=== PATIENT | male | born 1995 | race Caucasian/White ===

== ENCOUNTER 2016-06-21 06:10 | Emergency (ER) | payer BC ==
[~2016-06-21] VITALS: Ht 170.2 cm; Wt 52.2 kg
[~2016-06-21 06:10] MED LIST: PERCOCET 5-3251 EACH PO
--- NOTE | 2016-06-21 06:34 | ED GI/GU/ABDOMINAL COMPLAINT ---
See Addendum History of Present Illness General Chief Complaint: Abdominal Pain/Flank Pain Stated Complaint: LOW ABD PAIN PER PT Source: patient Exam Limitations: no limitations Vital Signs & Intake/Output Vital Signs & Intake/Output Vital Signs Date Time Temp Pulse Resp B/P Pulse O2 O2 Flow FiO2 Ox Delivery Rate 06/21 0624 96.8 100 22 129/84 97 Room Air Allergies Coded Allergies: NO KNOWN ALLERGIES (12/25/15) Reconcile Medications Oxycodone HCl/Acetaminophen (Percocet 5-325 MG Tablet) 1 EACH TABLET 1-2 TAB PO Q6P PRN PAIN Triage Note: PT TO ED COMPLAINING OF ABD PAIN AND SWEATS. PT N/V IN TRIAGE. DENIES DIARRHEA. Triage Nurses Notes Reviewed? yes Onset: Gradual Duration: hour(s): Timing: recent history Quality/Severity: cramping Location: epigastric, generalized abdomen, right lower quadrant Radiation: no radiation Activities at Onset: none Prior Abdominal Problems: none Modifying Factors: Worsens With: palpation, vomiting. Associated Symptoms: abdominal pain, nausea/vomiting HPI: 20-year-old gentleman in prior good health history of seizure disorder presents with several hours of diffuse abdominal pain, nausea, vomiting. He states that he awoke to the symptoms, and does not identify any causal agents. He has no fever chills dysuria diarrhea. He notes the pain is mostly in his lower abdomen and in his mid epigastrium. He has no chest pain shortness of breath. He is otherwise well. Mom wonders if it could be the flu. Past History Travel History Traveled to [place] past 21 day No Medical History Any Pertinent Medical History? see below for history Neurological: seizure EENT: NONE Cardiovascular: NONE Respiratory: NONE Gastrointestinal: NONE Hepatic: NONE Renal: NONE Musculoskeletal: NONE Psychiatric: NONE Endocrine: NONE Surgical History Surgical History: non-contributory Psychosocial History Who do you live with Family What is your primary language Austrian Tobacco Use: Current Daily Use Daily Tobacco Use Amount/Type: => 5 Cigarettes daily ETOH Use: denies use Family History Hx Contributory? No Review of Systems Review of Systems Constitutional: Reports: no symptoms. EENTM: Reports: no symptoms. Respiratory: Reports: no symptoms. Cardiovascular: Reports: no symptoms. GI: Reports: no symptoms. Genitourinary: Reports: no symptoms. Musculoskeletal: Reports: no symptoms. Skin: Reports: no symptoms. Neurological/Psychological: Reports: no symptoms. Hematologic/Endocrine: Reports: no symptoms. Immunologic/Allergic: Reports: no symptoms. All Other Systems: Reviewed and Negative Physical Exam Physical Exam General Appearance: well developed/nourished, mild distress, moderate distress Head: atraumatic, normal appearance Eyes: Bilateral: normal appearance. Ears, Nose, Throat, Mouth: hearing grossly normal Neck: normal inspection, supple, full range of motion Respiratory: normal breath sounds, chest non-tender, no respiratory distress, quiet respiration, lungs clear Cardiovascular: regular rate/rhythm Gastrointestinal: normal bowel sounds, soft, MID EPIGASTRIC TENDERNESS, RLQ TENDERNESS. NO REBOUND. NO GUARDING. Back: normal inspection Extremities: normal range of motion Neurologic/Psych: no motor/sensory deficits, awake, alert, oriented x 3 Skin: intact, normal color, warm/dry Core Measures ACS in differential dx? No Severe Sepsis Present: No Septic Shock Present: No Progress Differential Diagnosis: orchitis, pancreatitis, prostatitis, peptic ulcer, pyelonephritis, UTI/pyelo Plan of Care: Orders Procedure Date/time Status CT ABD & PELVIS W/O IV CONTRAS 06/21 640 Active RAPID VIRAL INFLUENZA A 06/21 633 Active URINALYSIS 06/21 633 Active LIPASE 06/21 633 Active HEPATIC FUNCTION PANEL 06/21 633 Active CBC WITHOUT DIFFERENTIAL 06/21 633 Active BASIC METABOLIC PANEL 06/21 633 Active AMYLASE 06/21 633 Active Current Medications Sig/Michael Start time Last Medication Dose Stop Time Status Admin Famotidine 20 MG ONCE ONE 06/21 0545 UNVr (Pepcid) 06/21 645 Ketorolac 30 MG ONCE ONE 06/21 0545 UNVr Tromethamine 06/21 0546 (Toradol) Ondansetron HCl 4 MG ONCE ONE 06/21 0545 UNVr (Zofran) 06/21 645 Sodium Chloride 1,000 ML BOLUS ONE 06/21 644 UNVr (Normal Saline 0.9%) 06/21 743 Diagnostic Imaging: Viewed by Me: CT Scan. Discussed w/RAD: CT Scan. Initial ED EKG: none Hand-Off Endorsed To: RUSSELL CRAWFORD DO Endorsed Time: 0700 Pending: CT, labs Departure Departure Disposition: STILL A PATIENT Condition: Stable Clinical Impression Primary Impression: Abdominal pain Referrals: BETZY FOLEY MD (PCP/Family) Departure Forms: Customer Survey General Discharge Information Comments pt to be given supportive medications, will check ct scan. pt signed out to dr. crawford at 7am.
[2016-06-21 06:53] LABS: ABSOLUTE BASOPHIL COUNT 0 /CUMM (0.0-0.2); ABSOLUTE EOSINOPHIL COUNT 0.2 /CUMM (0.0-0.7); ABSOLUTE GRANULOCYTE CT 5.9 /CUMM (1.4-6.5); ABSOLUTE LYMPH COUNT 3.7 /CUMM (1.2-3.4); ABSOLUTE MONOCYTE COUNT 0.7 /CUMM (0.10-0.60); BASOPHIL % 0.4 % (0.0-2.0); EOSINOPHIL % 2.1 % (0-5); GRANULOCYTE % 55.9 % (42.2-75.2); HEMATOCRIT 45.7 % (42-52); MEAN CORPUSCULAR HGB 30.1 PG (27.0-31.0); MEAN CORPUSCULAR HGB CONC 33.9 G/DL (33.0-37.0); MEAN CORPUSCULAR VOLUME 88.8 FL (80.0-94.0); MEAN PLATELET VOLUME 7.5 FL (7.4-10.4); PLATELET COUNT 273 /CUMM (130-400); RED BLOOD CELL CT 5.14 /CUMM (4.70-6.10); WHITE BLOOD CELL COUNT 10.6 /CUMM (4.8-10.8)
[2016-06-21 08:17] VITALS: BP 103/80
--- NOTE | 2016-06-21 08:51 | CT SCAN REPORT ---
EXAMINATION: CT ABDOMEN AND PELVIS WITHOUT CONTRAST CLINICAL INFORMATION: Right lower quadrant pain COMPARISON: None. TECHNIQUE: Multidetector volumetric imaging was performed from the superior aspect of the liver through the pubic symphysis. Sagittal and coronal reformatted images were obtained on the technologist's workstation. DLP: 250.18 mGy-cm. FINDINGS: LUNG BASES: The visualized lung bases are unremarkable. LIVER, GALLBLADDER, AND BILIARY TREE: The liver is normal in size, shape, and attenuation. No focal hepatic lesion or biliary ductal dilatation is present. The gallbladder is unremarkable. PANCREAS: Unremarkable. SPLEEN: Unremarkable. ADRENAL GLANDS: Unremarkable. KIDNEYS AND URETERS: Although the course of the right ureter is difficult to completely follow distally, there is a 2 mm calcification in the right pelvis which is suspicious for location at the right ureterovesicular junction (image 71/86). No significant hydronephrosis. A few additional scattered punctate calculi are noted in the right kidney. No left-sided hydronephrosis or calculi are seen. BLADDER: Unremarkable. GASTROINTESTINAL TRACT: The small and large bowel are unremarkable. The appendix is not well delineated, though the visualized portion appears nondilated. ABDOMINAL WALL: No significant hernia is appreciated. LYMPH NODES: No appreciable lymphadenopathy, though assessment is limited in the absence of intravenous contrast. VASCULAR: Unremarkable. PELVIC VISCERA: Unremarkable. OSSEOUS STRUCTURES: Unremarkable. IMPRESSION: 1. Calculus measuring 2 mm, likely at the right ureterovesicular junction. No significant hydronephrosis. 2. Few additional scattered punctate right renal calculi.
[2016-06-21] MEDS ORDERED: ZOFRAN4 M2 PO (09:11)
[2016-06-21] MEDS ORDERED: FLOMAX0.4 M1 PO (09:11)
[2016-06-21] MEDS ORDERED: MOBIC15 M1 PO (09:11)
== END 2016-06-21 09:44 ==
LOC: ERH 06:10
PROVIDERS: Pediatrics
DX: N20.1 Calculus of ureter (principal); R10.13 Epigastric pain; R10.31 Right lower quadrant pain
CPT/HCPCS: 74176; 81001; 87086; 87804; 87804-59; 96374; 96375; J1885; J2405

== ENCOUNTER 2016-10-25 09:15 | Emergency (ER) | payer BC ==
[~2016-10-25] VITALS: Ht 167.6 cm; Wt 52.2 kg
[~2016-10-25 09:15] MED LIST changes: +FLOMAX0.4 M1 PO; +MOBIC15 M1 PO; +ZOFRAN4 M2 PO
--- NOTE | 2016-10-25 09:34 | ED GI/GU/ABDOMINAL COMPLAINT ---
History of Present Illness General Chief Complaint: Abdominal Pain/Flank Pain Stated Complaint: R SIDE FLANK PAIN Source: patient, family, old records Exam Limitations: no limitations Vital Signs & Intake/Output Vital Signs & Intake/Output Vital Signs Date Time Temp Pulse Resp B/P B/P Pulse O2 O2 Flow FiO2 Mean Ox Delivery Rate 10/25 1505 96.6 65 20 118/79 98 Room Air 10/25 1320 96.7 54 16 118/72 99 Room Air 10/25 1120 95.1 60 20 126/82 98 Room Air 10/25 0917 96.0 52 18 125/81 96 Room Air Allergies Coded Allergies: NO KNOWN ALLERGIES (12/25/15) Reconcile Medications Tamsulosin HCl (Flomax) 0.4 MG CAP.ER.24H 1 CAP PO DAILY KIDNEY STONE Triage Note: 21 Y/O MALE C/O RLQ PAIN X 2 WEEKS; STATES PAIN IS INTERMITTENT IN NATURE. HX KIDNEY STONES AND THIS FEELS SIMILIAR. DENIES OTHER COMPLAINTS. HAS NOT TAKEN ANY OTC MEDS FOR PAIN. Triage Nurses Notes Reviewed? yes Onset: Gradual Duration: day(s):, continues in ED, intermittent (initially but now constant) Timing: recent history (may due to renal colic) Quality/Severity: sharpness, severe Location: right lower quadrant, suprapubic Radiation: no radiation HPI: Patient presents for evaluation of a severe right lower quadrant pain that began about 2 weeks ago. It was initially intermittent but became constant today. Patient states that he awoke with pain at about 6:30 this morning. He vomited once today. There has been no associated fever, cold symptoms, diarrhea or dysuria. He has had prior episodes in typically did not seek care although in May of this year he was diagnosed with renal colic. He has tried no medications for this current episode. He denies any alcohol or drug use but is a cigarette smoker. Past History Travel History Traveled to [place] past 21 day No Medical History Any Pertinent Medical History? 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 No Review of Systems Review of Systems Constitutional: Reports: no symptoms. EENTM: Reports: no symptoms. Respiratory: Reports: no symptoms. Cardiovascular: Reports: no symptoms. GI: Reports: see HPI. Genitourinary: Reports: no symptoms. Musculoskeletal: Reports: no symptoms. Skin: Reports: no symptoms. Neurological/Psychological: Reports: no symptoms. Hematologic/Endocrine: Reports: no symptoms. Immunologic/Allergic: Reports: no symptoms. All Other Systems: Reviewed and Negative Physical Exam Physical Exam Gastrointestinal: see below Comments: Gen.: Well-nourished, well-developed, no acute respiratory distress. Head: Normocephalic, atraumatic. Eyes: Normal inspection bilaterally Ears: Normal inspection bilaterally Nose: Normal inspection Throat/mouth : Moist mucosa Neck: Supple, full range of motion, no goiter Heart: Regular rate and rhythm, no murmurs rubs or gallops Lungs: Clear to auscultation bilaterally with normal air entry Chest: Nontender Back: Normal range of motion Abdomen: Soft, tenderness over the suprapubic and right lower quadrant regions with brief voluntary guarding but no rebound., nondistended, normal bowel sounds Extremities: Normal range of motion grossly, no cyanosis clubbing or edema Neurologic: Cranial nerves grossly intact, speech is clear Skin: warm and dry Psychiatric: Calm, cooperative, no apparent delusions or hallucinations, mildly anxious Core Measures ACS in differential dx? No Severe Sepsis Present: No Septic Shock Present: No Progress Differential Diagnosis: appendicitis, ureterolithiasis, UTI/pyelo Plan of Care: Orders Procedure Date/time Status URINALYSIS 10/25 932 Complete LIPASE 10/25 932 Complete COMPREHENSIVE METABOLIC PANEL 10/25 932 Complete CBC WITHOUT DIFFERENTIAL 10/25 932 Complete Laboratory Tests 10/25/16 0943: Anion Gap 12, Estimated GFR > 60, BUN/Creatinine Ratio 13.0, Glucose 151 H, Calcium 9.5, Total Bilirubin 0.6, AST 18, ALT 35, Alkaline Phosphatase 79, Total Protein 7.0, Albumin 4.5, Globulin 2.5, Albumin/Globulin Ratio 1.8, Lipase 112, CBC w Diff NO MAN DIFF REQ, RBC 4.90, MCV 87.4, MCH 30.0, RDW 12.5, MPV 7.6, Gran % 78.2 H, Lymphocytes % 15.1 L, Monocytes % 5.8, Eosinophils % 0.5, Basophils % 0.4, Absolute Granulocytes 7.2 H, Absolute Lymphocytes 1.4, Absolute Monocytes 0.5, Absolute Eosinophils 0, Absolute Basophils 0, PUBS MCHC 34.4 10/25/16 0933: Urinalysis MOD H, Urine Color YEL, Urine Clarity CLDY H, Urine pH 7.0, Ur Specific [place] 1.020, Urine Protein TRACE H, Urine Ketones TRACE H, Urine Nitrite NEG, Urine Bilirubin NEG, Urine Urobilinogen 0.2, Ur Leukocyte Esterase NEG, Ur Microscopic SEDIMENT EXAMINED, Urine RBC 25-50 H, Urine WBC 1-3 H, Urine Crystals RARE CA OX, Urine Hemoglobin LARGE H, Urine Glucose NEG Diagnostic Imaging: Discussed w/RAD: Ultrasound. Radiology Impression: PATIENT: NESTOR ESPINAL PRESENT AGE: 21 PATIENT ACCOUNT NO: [id number] : 94 LOCATION: [facility] ORDERING PHYSICIAN: MEET LOPEZ MD SERVICE DATE: 10/25/16 EXAM TYPE: US - US-LIMITED ABDOMEN; US-RENAL/KIDNEY EXAMINATION: US RENAL, BILATERAL US RIGHT LOWER QUADRANT, LIMITED CLINICAL INFORMATION: Right lower quadrant and suprapubic pain and tenderness. History of right renal calculi. Presumptive diagnosis of right renal colic versus appendicitis. COMPARISON: CT scan of the abdomen and pelvis dated 06/21/2016. TECHNIQUE: A bilateral renal ultrasound was performed. In addition to right lower quadrant ultrasound was performed with graded compression. Real-time assessment by the reading radiologist was performed. FINDINGS: RENAL ULTRASOUND: RIGHT KIDNEY: Normal. Mild hydronephrosis persists, similar to the prior exam. There is a 0.2 cm echogenic focus with associated ringdown artifact, consistent with a tiny nonobstructing mid renal calcification. This is unchanged from prior CT scan. No focal parenchymal lesions. The kidney measures 10.7 cm in maximum dimension. LEFT KIDNEY: Normal. No hydronephrosis. No renal calculi or suspicious focal parenchymal lesions. Benign-appearing cyst is seen in the mid kidney, measuring 0.9 x 0.9 x 1.0 The kidney measures 9.9 cm in maximum dimension. BLADDER: Decompressed and suboptimally visualized. No definite bladder calculi. Bilateral urine jets are not visualized. RIGHT LOWER QUADRANT ULTRASOUND: The ascending colon and small bowel loops in the right lower quadrant appearing unremarkable and are normally compressible. No focal fluid collection or adenopathy is seen in the right lower quadrant. The appendix is not discretely identified. No secondary signs of appendicitis are seen. Abdomen felt soft and no significant guarding was noted during the graded compression. IMPRESSION: 1. Nonobstructing mid right renal 0.2 cm calcification. 2. Persistent mild right-sided hydronephrosis, similar to the prior CT scan. 3. Tiny mid left renal cyst. 4. Bladder incompletely assessed. 5. The appendix is not discretely identified. However, no secondary signs of appendicitis are seen. Close clinical correlation is requested. If clinical suspicion remains high, recommend further assessment with CT scan of the abdomen and pelvis with oral and intravenous contrast. DICTATED BY: CORIE CONLEY MD DATE/TIME DICTATED:10/25/161112 CALL WORKER PERSON:CHUCKY DATE/TIME TRANSCRIBED:10/25/161112 CONFIDENTIAL, DO NOT COPY WITHOUT APPROPRIATE AUTHORIZATION. <Electronically signed in Other Vendor System> SIGNED BY: CORIE CONLEY MD 10/25/16 1123 Initial ED EKG: none Comments: 10/25/2016 3:19:30 PM I updated Nestor after his ultrasound results were available and i just updated him again on his CAT scan report. He states he is comfortable. He has medications "leftover" from his prior kidney stone treated in this emergency department in May. Departure Departure Disposition: HOME OR SELF CARE Condition: Stable Clinical Impression Primary Impression: Renal colic on right side Referrals: PATIENT HAS NO PRIMARY CARE DR (PCP/Family) Additional Instructions: Toradol as prescribed for pain. You may take the ondansetron (Zofran) for nausea or vomiting as needed as prescribed during her last visit. You do not need to take the other medications previously prescribed. Follow-up with Dr. Silver or your own urologist as soon as possible for reevaluation and further testing and treatment as indicated. Return if any concerns or sudden worsening. Please note that there might be incidental findings in your evaluation that are unrelated to the current emergency department visit. Please notify your primary care doctor about this emergency department visit in order to obtain and review all of the testing performed so that these incidental findings can be monitored as needed. If you had an x-ray performed, please understand that some fractures may not be seen on the initial set of x-rays. If your symptoms persist you might need a repeat set of x-rays to check for such a fracture. If you had a laceration evaluated, please understand that foreign bodies such as glass or wood may not be visible to the naked eye or on plain x-rays. If the wound becomes red, swollen, increasingly more painful or if there is any drainage from the wound, please have it reevaluated by a physician for the possibility of a retained foreign body. Thank you for choosing the [facility] Emergency Department for your care. It was a pleasure to serve you today. Meet Lopez M.D. [facility] Departure Forms: Customer Survey General Discharge Information Prescriptions: Current Visit Scripts Ketorolac Tromethamine 1 TAB PO Q6P PRN kidney stone pain #16 TAB Nestor was treated with IV Toradol in the emergency department Critical Care Note Critical Care Note Critical Care Time: 30-74 min
[2016-10-25 09:54] LABS: ABSOLUTE BASOPHIL COUNT 0 /CUMM (0.0-0.2); ABSOLUTE EOSINOPHIL COUNT 0 /CUMM (0.0-0.7); ABSOLUTE GRANULOCYTE CT 7.2 /CUMM (1.4-6.5); ABSOLUTE LYMPH COUNT 1.4 /CUMM (1.2-3.4); ABSOLUTE MONOCYTE COUNT 0.5 /CUMM (0.10-0.60); BASOPHIL % 0.4 % (0.0-2.0); EOSINOPHIL % 0.5 % (0-5); GRANULOCYTE % 78.2 % (42.2-75.2); HEMATOCRIT 42.9 % (42-52); MEAN CORPUSCULAR HGB CONC 34.4 G/DL (33.0-37.0); MEAN CORPUSCULAR VOLUME 87.4 FL (80.0-94.0); MEAN PLATELET VOLUME 7.6 FL (7.4-10.4); PLATELET COUNT 244 /CUMM (130-400); RBC DISTRIBUTION WIDTH 12.5 % (11.5-14.5); WHITE BLOOD CELL COUNT 9.2 /CUMM (4.8-10.8)
--- NOTE | 2016-10-25 11:23 | ULTRASOUND REPORT ---
EXAMINATION: US RENAL, BILATERAL US RIGHT LOWER QUADRANT, LIMITED CLINICAL INFORMATION: Right lower quadrant and suprapubic pain and tenderness. History of right renal calculi. Presumptive diagnosis of right renal colic versus appendicitis. COMPARISON: CT scan of the abdomen and pelvis dated 06/21/2016. TECHNIQUE: A bilateral renal ultrasound was performed. In addition to right lower quadrant ultrasound was performed with graded compression. Real-time assessment by the reading radiologist was performed. FINDINGS: RENAL ULTRASOUND: RIGHT KIDNEY: Normal. Mild hydronephrosis persists, similar to the prior exam. There is a 0.2 cm echogenic focus with associated ringdown artifact, consistent with a tiny nonobstructing mid renal calcification. This is unchanged from prior CT scan. No focal parenchymal lesions. The kidney measures 10.7 cm in maximum dimension. LEFT KIDNEY: Normal. No hydronephrosis. No renal calculi or suspicious focal parenchymal lesions. Benign-appearing cyst is seen in the mid kidney, measuring 0.9 x 0.9 x 1.0 The kidney measures 9.9 cm in maximum dimension. BLADDER: Decompressed and suboptimally visualized. No definite bladder calculi. Bilateral urine jets are not visualized. RIGHT LOWER QUADRANT ULTRASOUND: The ascending colon and small bowel loops in the right lower quadrant appearing unremarkable and are normally compressible. No focal fluid collection or adenopathy is seen in the right lower quadrant. The appendix is not discretely identified. No secondary signs of appendicitis are seen. Abdomen felt soft and no significant guarding was noted during the graded compression. IMPRESSION: 1. Nonobstructing mid right renal 0.2 cm calcification. 2. Persistent mild right-sided hydronephrosis, similar to the prior CT scan. 3. Tiny mid left renal cyst. 4. Bladder incompletely assessed. 5. The appendix is not discretely identified. However, no secondary signs of appendicitis are seen. Close clinical correlation is requested. If clinical suspicion remains high, recommend further assessment with CT scan of the abdomen and pelvis with oral and intravenous contrast.
--- NOTE | 2016-10-25 14:37 | CT SCAN REPORT ---
EXAMINATION: CT ABDOMEN AND PELVIS WITH CONTRAST CLINICAL INFORMATION: Right-sided pain. Evaluate for renal colic or appendicitis. COMPARISON: CT abdomen and pelvis dated 06/21/2016 TECHNIQUE: Multidetector volumetric imaging was performed of the abdomen and pelvis before and after the IV administration of 94 mL of Optiray 320 intravenous contrast. Sagittal and coronal reformatted images were obtained on the technologist's workstation. DLP: 266.50 mGy-cm FINDINGS: LUNG BASES: The visualized lung bases are unremarkable. LIVER, GALLBLADDER, AND BILIARY TREE: The liver is normal in size, shape, and attenuation. No focal hepatic lesion or biliary ductal dilatation is present. The gallbladder is unremarkable with no evidence of radiopaque gallstones, gallbladder wall thickening, or obvious pericholecystic inflammatory changes. PANCREAS: Unremarkable. SPLEEN: Unremarkable. ADRENAL GLANDS: Unremarkable. KIDNEYS AND URETERS: There is fullness of the right-sided collecting system and mild dilatation of the right ureter. Tiny calcific density measuring approximately 0 point to by 0.3 cm noted at the level of right UVJ (series 2 image 76 and coronal image 38). Findings are suspicious for right UVJ calculus. Study had also demonstrated suggestion of right UVJ calculus. The current calculus is noted slightly more proximal to the to the one seen on the prior exam.. Subtle delay in the right renal function compared to the left kidney. Low-attenuation cortical lesion measuring approximately 1 cm noted in the mid to lower left kidney. It is too small to be accurately characterize. Previously seen punctate calculus mid to lower right kidney is no longer appreciated. BLADDER: Unremarkable. GASTROINTESTINAL TRACT: Contrast is seen within the stomach, small and large bowel loops. Appendix is difficult to visualize likely due to its small size and decompressed appearance. No definite evidence of acute appendicitis. ABDOMINAL WALL: No significant hernia is appreciated. LYMPH NODES: No evidence of lymphadenopathy. VASCULAR: Unremarkable. PELVIC VISCERA: Unremarkable. OSSEOUS STRUCTURES: Unremarkable. IMPRESSION: 1. Tiny 0.3 cm partially obstructing calculus right UVJ. Mild fullness of the right collecting system. Prior study had also demonstrated a 2 mm calculus at the right UVJ. The current calculus is noted slightly more proximal to the one seen previously. 2. Previously seen punctate calculus in the mid to lower right kidney is no longer visualized. 3. Slight delay in the right renal function. 4. No definite evidence of acute appendicitis.
[2016-10-25 15:05] VITALS: BP 118/79
[2016-10-25] MEDS ORDERED: KETOROLAC TROME10 M1 PO (15:26)
== END 2016-10-25 15:47 ==
LOC: ERH 09:15
PROVIDERS: Emergency Medicine
DX: N23 Unspecified renal colic (principal)
CPT/HCPCS: 74177; 76775; 81001; 96374; 96375; J0131; J1885; J2405

== ENCOUNTER 2016-10-27 16:09 | Emergency (ER) | payer BC ==
[~2016-10-27] VITALS: Ht 167.6 cm; Wt 52.2 kg
[~2016-10-27 16:09] MED LIST changes: +KETOROLAC TROME10 M1 PO
--- NOTE | 2016-10-27 16:55 | ED GI/GU/ABDOMINAL COMPLAINT ---
History of Present Illness General Chief Complaint: Abdominal Pain/Flank Pain Stated Complaint: RIGHT FLANK PAIN, LAST SEEN FOR KIDNEY STONE Source: patient, family, old records Exam Limitations: no limitations Vital Signs & Intake/Output Vital Signs & Intake/Output Vital Signs Date Time Temp Pulse Resp B/P B/P Pulse O2 O2 Flow FiO2 Mean Ox Delivery Rate 10/27 1737 68 18 116/74 97 Room Air 10/27 1620 98.9 52 15 142/88 99 Room Air Room Air Allergies Coded Allergies: No Known Allergies (10/27/16) Reconcile Medications Ketorolac Tromethamine 10 MG TABLET 1 TAB PO Q6P PRN kidney stone pain Nestor was treated with IV Toradol in the emergency department Triage Note: PT TO ED FOR R FLANK PAIN THAT STARTED THIS MORNING. SEEN SATURDAY IN THIS ED AND DIAGNOSED WITH KIDNEY STONE. TOOK HOME PAIN MEDS WITHOUT RELIEF. PT DENIES N/V AT THIS TIME. DENIES FEVERS. Triage Nurses Notes Reviewed? yes Onset: several days Duration: day(s):, continues in ED, waxing and waning Timing: recent history Quality/Severity: sharpness, severe Location: right flank Radiation: back Activities at Onset: none Prior Abdominal Problems: similar symptoms Past Sexual History: Unobtainable at this time No Modifying Factors: none Associated Symptoms: abdominal pain, loss of appetite, nausea/vomiting HPI: Several days prior to admission patient planes of right flank pain sharp waxing and waning moderate to severe radiating to his back associated with nausea. He was seen in the emergency department found to have kidney stones and did not fill his prescriptions for analgesic. He denies fever chills vomiting diarrhea chest pain cough shortness of breath headache dysuria rash bleeding Past History Travel History Traveled to [place] past 21 day No Medical History Any Pertinent Medical History? 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 No Review of Systems Review of Systems Constitutional: Reports: no symptoms. EENTM: Reports: no symptoms. Respiratory: Reports: no symptoms. Cardiovascular: Reports: no symptoms. GI: Reports: see HPI, abdominal pain, nausea. Genitourinary: Reports: no symptoms. Musculoskeletal: Reports: no symptoms. Skin: Reports: no symptoms. Neurological/Psychological: Reports: no symptoms. Hematologic/Endocrine: Reports: no symptoms. Immunologic/Allergic: Reports: no symptoms. All Other Systems: Reviewed and Negative Physical Exam Physical Exam General Appearance: well developed/nourished, alert, awake, anxious, moderate distress, thin Head: atraumatic, normal appearance Eyes: Bilateral: normal appearance, PERRL, EOMI, normal inspection. Ears, Nose, Throat, Mouth: hearing grossly normal, moist mucous membrane Neck: normal inspection, supple, full range of motion, normal alignment Respiratory: normal breath sounds, chest non-tender, no respiratory distress, quiet respiration, lungs clear Cardiovascular: regular rate/rhythm, normal peripheral pulses, norml femoral pulses equa Peripheral Pulses: 4+ carotid (R), 4+ carotid (L) Gastrointestinal: normal bowel sounds, soft Male Genitals: normal genitalia Back: normal inspection, normal range of motion Extremities: normal range of motion, no ligament instability Neurologic/Psych: no motor/sensory deficits, awake, alert, oriented x 3, normal gait, normal mood/affect, 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 No Severe Sepsis Present: No Septic Shock Present: No Progress Differential Diagnosis: gastritis, pancreatitis, ureterolithiasis, UTI/pyelo Plan of Care: Orders Procedure Date/time Status URINALYSIS 10/27 1639 Complete COMPREHENSIVE METABOLIC PANEL 10/27 1639 Complete CBC WITHOUT DIFFERENTIAL 10/27 1639 Complete Laboratory Tests 10/27/16 1815: Urinalysis LIGHT H, Urine Color YEL, Urine Clarity HAZY H, Urine pH 7.0, Ur Specific [place] 1.020, Urine Protein TRACE H, Urine Ketones >=80, Urine Nitrite NEG, Urine Bilirubin NEG, Urine Urobilinogen 1.0, Ur Leukocyte Esterase NEG, Ur Microscopic SEDIMENT EXAMINED, Urine RBC 15-25 H, Urine WBC 1-3 H, Ur Epithelial Cells RARE, Urine Bacteria RARE H, Urine Mucus MOD H, Urine Hemoglobin MOD H, Urine Glucose NEG 10/27/16 1700: Anion Gap 12, Estimated GFR > 60, BUN/Creatinine Ratio 15.6, Glucose 93, Calcium 9.9, Total Bilirubin 1.0, AST 20, ALT 41, Alkaline Phosphatase 73, Total Protein 7.6, Albumin 5.0, Globulin 2.6, Albumin/Globulin Ratio 1.9, CBC w Diff NO MAN DIFF REQ, RBC 5.26, MCV 89.3, MCH 29.7, RDW 13.0, MPV 7.8, Gran % 84.6 H, Lymphocytes % 9.8 L, Monocytes % 5.1, Eosinophils % 0.2, Basophils % 0.3, Absolute Granulocytes 9.1 H, Absolute Lymphocytes 1.1 L, Absolute Monocytes 0.5, Absolute Eosinophils 0, Absolute Basophils 0, PUBS MCHC 33.3 Initial ED EKG: none Departure Departure Time of Disposition: 1843 Disposition: HOME OR SELF CARE Condition: Stable Clinical Impression Primary Impression: Renal colic on right side Referrals: PARUL MENDIETA,CRISTOB[place] Call for urology follow up Departure Forms: Customer Survey General Discharge Information Prescriptions: Current Visit Scripts Tamsulosin HCl (Flomax) 1 CAP PO DAILY #15 CAP Ibuprofen 1 TAB PO Q6PRN PRN pain #50 TAB with food Oxycodone HCl/Acetaminophen (Percocet 5-325 MG Tablet) 1-2 TAB PO Q6P PRN severe pain #15 TAB
[2016-10-27 17:07] LABS: ABSOLUTE BASOPHIL COUNT 0 /CUMM (0.0-0.2); ABSOLUTE EOSINOPHIL COUNT 0 /CUMM (0.0-0.7); ABSOLUTE GRANULOCYTE CT 9.1 /CUMM (1.4-6.5); ABSOLUTE LYMPH COUNT 1.1 /CUMM (1.2-3.4); ABSOLUTE MONOCYTE COUNT 0.5 /CUMM (0.10-0.60); BASOPHIL % 0.3 % (0.0-2.0); EOSINOPHIL % 0.2 % (0-5); GRANULOCYTE % 84.6 % (42.2-75.2); HEMATOCRIT 46.9 % (42-52); MEAN CORPUSCULAR HGB 29.7 PG (27.0-31.0); MEAN CORPUSCULAR HGB CONC 33.3 G/DL (33.0-37.0); MEAN CORPUSCULAR VOLUME 89.3 FL (80.0-94.0); MEAN PLATELET VOLUME 7.8 FL (7.4-10.4); PLATELET COUNT 275 /CUMM (130-400); RED BLOOD CELL CT 5.26 /CUMM (4.70-6.10); WHITE BLOOD CELL COUNT 10.8 /CUMM (4.8-10.8)
[2016-10-27 17:37] VITALS: BP 116/74
[2016-10-27] MEDS ORDERED: FLOMAX0.4 M1 PO (18:43)
[2016-10-27] MEDS ORDERED: IBUPROFEN600 M1 PO (18:43)
[2016-10-27] MEDS ORDERED: PERCOCET 5-3251 EACH PO (18:43)
== END 2016-10-27 18:58 ==
LOC: ERH 16:09
PROVIDERS: Emergency Medicine
DX: N23 Unspecified renal colic (principal)
CPT/HCPCS: 81001; 96374; 96375; J1885; J2405